=== PATIENT | male | born 1990 | race Caucasian/White ===

== ENCOUNTER 2018-09-02 12:52 | Emergency (ER) | payer SELFPAY ==
[~2018-09-02] VITALS: Ht 180.3 cm; Wt 75.0 kg
[2018-09-02 12:54] VITALS: BP 125/84
== END 2018-09-02 15:15 | disposition left against medical advice (07) ==
LOC: ER 14:51
DX: R07.9 Chest pain, unspecified (principal); Z53.21 Procedure and treatment not carried out due to patient leaving prior to being seen by health care provider

== ENCOUNTER 2019-02-09 08:55 | Emergency (ER) | payer SELFPAY ==
[~2019-02-09] VITALS: Ht 177.8 cm; Wt 75.0 kg
[2019-02-09] MEDS ORDERED: KETOROLAC 60MG/2ML VIAL IM STA (09:11)
[2019-02-09 09:50] LABS: HEMATOCRIT. 50.3 % (42.0-52.0); HEMOGLOBIN. 17.6 g/dL (14.0-18.0); LYMPHOCYTES % 29.5 % (20.0-50.0); MEAN CORPUSCULAR VOLUME 99.9 fL (80.0-94.0); MEAN PLATELET VOLUME 8.2 fl (7.4-10.4); MONOCYTES % 7.7 % (2.0-8.0); NEUTROPHILS % 59.8 % (40.0-76.0); PLATELET 256 x1000/uL (130-400); RED BLOOD CELL COUNT 5.04 mill/uL (4.7-6.1); RED CELL DISTRIBUTION WIDTH 13.4 % (11.6-14.6)
[2019-02-09 09:57] LABS: CHLORIDE 108 mEq/L (98-107)
[2019-02-09 10:39] VITALS: BP 139/94
== END 2019-02-09 10:43 | disposition home or self-care (01) ==
LOC: ER 08:55
DX: R07.89 Other chest pain (principal); F17.210 Nicotine dependence, cigarettes, uncomplicated; Z71.6 Tobacco abuse counseling
CPT/HCPCS: 36415; 71045; 80053; 85025; 93005; 96372; 99284; 99406; J1885